=== PATIENT | female | born 1985 | race Caucasian/White ===

== ENCOUNTER 2020-12-24 07:12 | Emergency (ER) | payer OTHER ==
[2020-12-24 07:22] VITALS: BP 124/55
[2020-12-24 07:45] LABS: BILIRUBIN,URINE NEGATIVE (NEGATIVE); GLUCOSE, URINE (UA) NEGATIVE (NEGATIVE); KETONES,URINE (UA) NEGATIVE (NEGATIVE); LEUKOCYTE ESTERASE, URINE MODERATE (NEGATIVE); NITRITE,URINE NEGATIVE (NEGATIVE); OCCULT BLOOD,URINE LARGE (NEGATIVE); PROTEIN,URINE 30 mg/dL (NEGATIVE); UROBILINOGEN,URINE 0.2 (NORMAL) E.U./dL (NORMAL)
[2020-12-24 07:47] LABS: CLARITY,URINE HAZY (CLEAR)
[2020-12-24] MEDS ORDERED: SULFAMETH/TRIMETH DS 800/160 MG TABLET PO STA (07:53)
--- NOTE | 2020-12-24 07:53 | ED Physician Documentation ---
History of Present Illness - Stated complaint Stated Complaint: FEMALE - Chief complaint Chief Complaint: UTI - History obtained from History obtained from: Patient - Additonal information Additional information: Patient comes emergency department chief complaint of dysuria for the last couple of days. She states she has had frequency and some back pain 2. No chills, fever, nausea, or vomiting. Vague lower abdominal discomfort but mostly has discomfort in the right low back. Patient states she has had a UTI before and this feels the same. She has had a little more vaginal discharge than usual but no bleeding out of turn. She states she has a an IUD and is not sexually active, so she is confident she is not . No other complaints at this time Review of Systems Ten Systems: 10 systems reviewed and negative Constitutional: reports: Reviewed and negative Eyes: reports: Reviewed and negative Ears: reports: Reviewed and negative Nose: reports: Reviewed and negative Throat: reports: Reviewed and negative Cardiac: reports: Reviewed and negative Respiratory: reports: Reviewed and negative GI: reports: Abdominal Pain (Discomfort) : reports: Dysuria, Frequency Skin: reports: Reviewed and negative Musculoskeletal: reports: Back pain Neurologic: reports: Reviewed and negative Psychiatric: reports: Reviewed and negative Endocrine: reports: Reviewed and negative Immunocompromised: reports: Reviewed and negative PD PAST MEDICAL HISTORY - Past Medical History Past Medical History: No - Present Medications Home Medications: Ambulatory Orders Medication Instructions Recorded Confirmed SUMAtriptan [Imitrex] 25 mg PO ONCE PRN 12/24/20 12/24/20 Sulfamethox/Trimeth 800/160 1 each PO BID #14 tablet 12/24/20 [Bactrim Ds 800/160] - Allergies Allergies/Adverse Reactions: Allergies Allergy/AdvReac Type Severity Reaction Status Date / Time No Known Drug Allergies Allergy Verified 12/24/20 07:18 - Social History Does the pt smoke?: No Smoking Status: Never smoker Does the pt drink ETOH?: No Does the pt have substance abuse?: No - Immunizations Immunizations are current?: Yes - POLST Patient has POLST: No PD ED PE NORMAL - Vitals Vital signs reviewed: Yes - General General: Alert and oriented X 3, No acute distress, Well developed/nourished - HEENT HEENT: Atraumatic, PERRL, EOMI, Moist mucous membranes - Neck Neck: Supple, no meningeal sign - Cardiac Cardiac: RRR, No murmur, Strong equal pulses - Respiratory Respiratory: No respiratory distress, Clear bilaterally - Abdomen Abdomen: Soft, Non distended, Other (Slight tenderness suprapubic area.) - Back Back: No CVA TTP - Derm Derm: Normal color, Warm and dry, No rash - Extremities Extremities: No deformity, No edema, No calf tenderness / cord - Neuro Neuro: Alert and oriented X 3, 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, Normal speech - Psych Psych: Normal mood, Normal affect Results - Vitals Vitals: Vital Signs - 24 hr 12/24/20 07:19 Temperature 36.5 C Heart Rate 87 Respiratory 16 Rate Blood Pressure 124/55 L O2 Saturation 100 Oxygen O2 Source Room air - Labs Labs: Laboratory Tests 12/24/20 07:36 Urine Color YELLOW Urine Clarity HAZY Urine pH 6.0 Ur Specific [place] 1.015 Urine Protein 30 H Urine Glucose (UA) NEGATIVE Urine Ketones NEGATIVE Urine Occult Blood LARGE H Urine Nitrite NEGATIVE Urine Bilirubin NEGATIVE Urine Urobilinogen 0.2 (NORMAL) Ur Leukocyte Esterase MODERATE H Ur Microscopic Review INDICATED Urine Culture Comments Not Reportable PD MEDICAL DECISION MAKING - ED course Complexity details: reviewed results, re-evaluated patient, considered differential, d/w patient ED course: Patient was worked up with urinalysis, which showed a urinary tract infection. She was started on antibiotics for this. We have discussed symptomatic management at home and the usual indications for return. Departure - Departure Disposition: 01 Home, Self Care Clinical Impression: Urinary tract infection Qualifiers: Urinary tract infection type: acute cystitis Hematuria presence: with hematuria Qualified Code(s): N30.01 - Acute cystitis with hematuria Condition: Stable Instructions: ED UTI Cystitis Female Prescriptions: Sulfamethox/Trimeth 800/160 [Bactrim Ds 800/160] 1 each PO BID #14 tablet
[2020-12-24 07:55] LABS: BACTERIA,URINE Few /HPF (None Seen); RBC,URINE TNTC /HPF (0-5); SQUAMOUS EPITHELIAL CELL,UR FEW Squamous (<= Few); WBC,URINE >25 /HPF (0-5)
[2020-12-24 08:08] LABS: HCG UR QUAL NEGATIVE
== END 2020-12-24 08:00 | disposition home or self-care (01) ==
LOC: ED 07:12
DX: N30.01 Acute cystitis with hematuria (principal)
CPT/HCPCS: 81001; 81025; 87086; 87181; 99282; 99283; A9270; 81003

== ENCOUNTER 2021-05-26 08:00 | Outpatient (CLI) | payer OTHER | END 2021-05-26 23:59 | disposition home or self-care (01) | LOC: LAB.N 08:00 | PROVIDERS: ATTEND Family Medicine | DX: N39.0 Urinary tract infection, site not specified (principal) | CPT/HCPCS: 87086; 87181 ==